=== PATIENT | female | born 1975 | race Caucasian/White ===

== ENCOUNTER → 2018-06-24 | Outpatient (CLI) | payer MEDICARE ==
[~2018-06-24] MED LIST: ALBU90OI INH; ALBU90OI6 INH; ALBUTEROL; AMOCLA875 PO; ARIP20 PO; AZIT500 PO; Abilify2 MG; BENZ100A PO; BRINTELLIX5 MG PO; BUDE10.22 INH; CLON.5 PO; CLON1 PO; CRUTCH4 USE; CYCL10 PO; Colace100 MG PO; DIAZ5 PO; DICL75ER PO; DIPH25 PO; DULO30 PO; DULO60 PO; ERGO400 PO; ESCI10 PO; ESCITALOPRAM; ESTR.05PBW TOP; ESTR2 PO; GABA300 PO; GUAI120S1 PO; HYDACE10B PO; HYDACE5 PO; IBUP800 PO; INDO50 PO; LEVO750 PO; LEVSOD50 PO; LORA10ER PO; LORAZEPAM; META800 PO; NAPR550 PO; OMEP20ER PO; OXYACE5T PO; OXYC5; PRED10 PO; PRED20 PO; PSEU120ER PO; QUETIAPINE FUM300 M1 PO; SULTRIDS PO; THERAFLU; TRAM50 PO; TYLENOL; VENL150ER PO; Ventolin5 MG/1 ML; [UNRECOGNIZED DRUG - OTHER]; [UNRECOGNIZED DRUG - OTHER] TOP
[2018-06-24 18:01] LABS: BASOPHILS ABSOLUTE AUTO 0.04 K/mm3 (0.00-0.23); BASOPHILS PERCENT AUTO 1 % (0-2); EOSINOPHILS PERCENT AUTO 0 % (0-6); Hematocrit 40.2 % (33.0-51.0); Hemoglobin 13.2 g/dL (11.5-16.0); IMMATURE GRAN ABSOLUTE AUTO 0.02 K/mm3 (0.00-0.10); IMMATURE GRAN PERCENT AUTO 0 % (0-1); LYMPHOCYTES ABSOLUTE AUTO 1.83 K/mm3 (0.84-5.20); LYMPHOCYTES PERCENT AUTO 32 % (21-46); MONOCYTES ABSOLUTE AUTO 0.34 K/mm3 (0.16-1.47); MONOCYTES PERCENT AUTO 6 % (4-13); Mean Corpuscular HGB 29.3 pg (26.0-34.0); Mean Corpuscular HGB Conc 32.8 g/dL (31.5-36.5); Mean Corpuscular Volume 89 fL (80-100); Mean Platelet Volume 9.2 fL (9.1-12.4); NEUTROPHILS ABSOLUTE AUTO 3.52 K/mm3 (1.96-9.15); NEUTROPHILS PERCENT AUTO 61 % (41-73); Platelet Count 332 K/mm3 (150-400); RDW Coefficient Variation 14.1 % (11.7-14.2); RDW Standard Deviation 45.5 fL (35.1-46.3); Red Blood Cell Count 4.51 M/mm3 (3.80-5.20); White Blood Cell Count 5.75 K/mm3 (4.00-11.30)
[2018-06-24 18:36] LABS: Alanine Aminotransfer (ALT/SGP 19 U/L (12-78); Albumin, Blood 3.7 g/dL (3.4-5.0); Albumin/Globulin Ratio 0.9 (0.8-1.8); Alk Phos 81 U/L (50-136); Anion Gap 8 mmol/L (6-16); Aspartate Aminotrans (AST/SGOT 16 U/L (12-37); Bilirubin, Total 0.2 mg/dL (0.1-1.0); Blood Urea Nitrogen 10 mg/dL (8-24); Bun/Creatinine Ratio 12.9 (12.0-20.0); CO2, Blood 25 mmol/L (21-32); Calcium, Blood 9.5 mg/dL (8.5-10.1); Chloride, Blood 103 mmol/L (98-108); Creatinine, Blood 0.77 mg/dL (0.40-1.00); Globulin, Blood 4.1 g/dL (2.2-4.0); Glomerular Filtration Rate >60 (60-); Glucose, Blood 84 mg/dL (70-99); Potassium, Blood 4.5 mmol/L (3.5-5.5); Sodium, Blood 136 mmol/L (136-145); Total Protein, Blood 7.8 g/dL (6.4-8.2)
== END | disposition home or self-care (01) ==
LOC: LAB 17:17 → LAB SHORT 17:17
PROVIDERS: Hospitalist
DX: R42 Dizziness and giddiness (principal)
CPT/HCPCS: 80053; 85025

== ENCOUNTER 2018-12-18 11:32 | Emergency (ER) | payer MEDICARE ==
[~2018-12-18] VITALS: Ht 157.5 cm; Wt 86.2 kg
[~2018-12-18 11:32] MED LIST changes: +FLUO10 PO; +VENL75ER PO
[2019-01-01] MEDS ORDERED: AIRBORNE TABLE1 EACH PO
== END 2018-12-18 13:24 | disposition home or self-care (01) ==
LOC: ER 11:32
DX: M25.522 Pain in left elbow (principal); F32.9 Major depressive disorder, single episode, unspecified; E03.9 Hypothyroidism, unspecified; Z88.8 Allergy status to other drugs, medicaments and biological substances; Z88.1 Allergy status to other antibiotic agents; Z79.899 Other long term (current) drug therapy
CPT/HCPCS: 96372; 99283-25; J1100; J1885

== ENCOUNTER 2019-01-01 16:44 | Observation (INO) | payer MEDICARE ==
[~2019-01-01] VITALS: Ht 157.5 cm; Wt 88.1 kg
[~2019-01-01 16:44] MED LIST changes: +AIRBORNE TABLE1 EACH PO
[2019-01-01 17:32] LABS: Source, Urine Clean Catch
[2019-01-01 17:37] LABS: BASOPHILS ABSOLUTE AUTO 0.03 K/mm3 (0.00-0.23); BASOPHILS PERCENT AUTO 0 % (0-2); EOSINOPHILS PERCENT AUTO 0 % (0-6); Hematocrit 39.6 % (33.0-51.0); Hemoglobin 12.8 g/dL (11.5-16.0); IMMATURE GRAN ABSOLUTE AUTO 0.04 K/mm3 (0.00-0.10); IMMATURE GRAN PERCENT AUTO 0 % (0-1); LYMPHOCYTES ABSOLUTE AUTO 1.35 K/mm3 (0.84-5.20); LYMPHOCYTES PERCENT AUTO 11 % (21-46); MONOCYTES ABSOLUTE AUTO 0.57 K/mm3 (0.16-1.47); MONOCYTES PERCENT AUTO 5 % (4-13); Mean Corpuscular HGB 29.4 pg (26.0-34.0); Mean Corpuscular HGB Conc 32.3 g/dL (31.5-36.5); Mean Corpuscular Volume 91 fL (80-100); Mean Platelet Volume 8.3 fL (9.1-12.4); NEUTROPHILS ABSOLUTE AUTO 9.94 K/mm3 (1.96-9.15); NEUTROPHILS PERCENT AUTO 83 % (41-73); Platelet Count 334 K/mm3 (150-400); RDW Coefficient Variation 13.9 % (11.7-14.2); RDW Standard Deviation 46.8 fL (35.1-46.3); Red Blood Cell Count 4.35 M/mm3 (3.80-5.20); White Blood Cell Count 11.93 K/mm3 (4.00-11.30)
[2019-01-01 17:56] LABS: Bilirubin, Urine Neg (Neg); Blood, Urine Neg (Neg); Glucose Qualitative, Urine Neg (Neg); Ketones, Urine Neg (Neg); Leukocyte Esterase, Urine Neg (Neg); Nitrite, Urine Neg (Neg); Protein, Urine Neg (Neg); Urobilinogen, Urine NORM (Normal); pH, Urine 6.5 (5.0-8.0)
[2019-01-01 18:04] LABS: Alanine Aminotransfer (ALT/SGP 20 U/L (12-78); Albumin, Blood 3.6 g/dL (3.4-5.0); Albumin/Globulin Ratio 0.8 (0.8-1.8); Alk Phos 77 U/L (50-136); Anion Gap 6 mmol/L (6-16); Aspartate Aminotrans (AST/SGOT 13 U/L (12-37); Bilirubin, Total 0.3 mg/dL (0.1-1.0); Blood Urea Nitrogen 9 mg/dL (8-24); Bun/Creatinine Ratio 11.4 (12.0-20.0); CO2, Blood 27 mmol/L (21-32); Calcium, Blood 8.6 mg/dL (8.5-10.1); Chloride, Blood 97 mmol/L (98-108); Creatinine, Blood 0.79 mg/dL (0.40-1.00); Globulin, Blood 4.6 g/dL (2.2-4.0); Glomerular Filtration Rate >60 (60-); Glucose, Blood 97 mg/dL (70-99); Potassium, Blood 3.8 mmol/L (3.5-5.5); Salicylate <1.7 mg/dL (2.8-20.0); Sodium, Blood 130 mmol/L (136-145); Total Protein, Blood 8.2 g/dL (6.4-8.2)
[2019-01-01 18:09] LABS: U Amphetamine Screen Not Detected; U Barbituate Screen Not Detected; U Benzodiazapine Screen Not Detected; U Buprenorphine Screen Not Detected; U Cannabinoids Screen DETECTED; U Cocaine Screen Not Detected; U Methadone Screen Not Detected; U Methamphetamine Screen Not Detected; U Opiates Screen Not Detected; U Oxycodone Screen Not Detected; U Phencyclidine Screen Not Detected; U Propoxyphene Screen Not Detected
[2019-01-01 18:11] LABS: Ethanol (Alcohol), Blood, Med <3 mg/dL
[2019-01-01 18:12] LABS: Acetaminophen, Random <2.0 ug/mL (10.0-30.0)
[2019-01-01] MEDS ORDERED: **INCOMPLETE MED REC (18:33)
[2019-01-01 18:40] LABS: Appearance, Urine Clear (Clear); Color, Urine Yellow (P-Yellow)
[2019-01-01] MEDS ORDERED: GABA600 PO (19:09)
[2019-01-01] MEDS ORDERED: CLON1 PO (19:09)
[2019-01-01] MEDS ORDERED: Prozac40 MG PO (19:09)
[2019-01-01] MEDS ORDERED: FOLI400 PO (19:10)
[2019-01-01] MEDS ORDERED: CHOL10002 (19:10)
[2019-01-01] MEDS ORDERED: ESTR2 PO (19:10)
[2019-01-01] MEDS ORDERED: Omeprazole20 M1 PO (19:15)
--- NOTE | 2019-01-02 02:26 | NUR ---
POISON CONTROL: CALLED 01/02 AT 0000 AND WAS GIVEN AN UPDATE. NO NEW ORDES WERE GIVEN. WILL CALL BACK IN AM.
--- NOTE | 2019-01-02 03:16 | NUR ---
PT RESTING QUIETLY, AWAKENING EASILY TO RN AT BEDSIDE. VSS. CALL LIGHT WITHING REACH.
[2019-01-02 04:44] LABS: Alanine Aminotransfer (ALT/SGP 18 U/L (12-78); Albumin, Blood 3.1 g/dL (3.4-5.0); Albumin/Globulin Ratio 0.7 (0.8-1.8); Alk Phos 71 U/L (50-136); Anion Gap 6 mmol/L (6-16); Aspartate Aminotrans (AST/SGOT 12 U/L (12-37); Bilirubin, Total 0.5 mg/dL (0.1-1.0); Blood Urea Nitrogen 8 mg/dL (8-24); Bun/Creatinine Ratio 9.8 (12.0-20.0); CO2, Blood 27 mmol/L (21-32); Calcium, Blood 8.3 mg/dL (8.5-10.1); Chloride, Blood 108 mmol/L (98-108); Creatinine, Blood 0.82 mg/dL (0.40-1.00); Globulin, Blood 4.2 g/dL (2.2-4.0); Glomerular Filtration Rate >60 (60-); Glucose, Blood 90 mg/dL (70-99); Potassium, Blood 3.9 mmol/L (3.5-5.5); Total Protein, Blood 7.3 g/dL (6.4-8.2)
[2019-01-02 05:31] LABS: Sodium, Blood 141 mmol/L (136-145)
--- NOTE | 2019-01-02 07:30 | NUR ---
ASSUMED CARE OF PATIENT; SEE ASSESSMENT CHARTING FOR DETAILS. 'SITTER' OUTSIDE OF ROOM; DOOR OPENED AND CURTAIN PULLED OPEN TO ALLOW GOOD MONITORING/SAFETY OF PATIENT. PATIENT ASLEEP; AROUSED BY VERBAL STIMULI; DENIES PAIN AT THIS TIME; STATES SHE SLEPT A LITTLE BIT LAST NIGHT. REMAINS WITH FLAT AFFECT BUT DOES ANSWER QUESTIONS WITH MORE THAN YES/OR NO. NO ACUTE MEDICAL ISSUES AT THIS TIME. IVF OF NS INFUSING AT 100ML/HR. PATIENT ASSISTED OOB TO VOID ON BSC; URINE MED. TO CODY YELLOW IN COLOR; MOD. AMOUNTS; SMEAR OF STOOL NOTED. OXYGEN AT 1-2L/MIN VIA NC; BIOX 97+%; WILL REMOVE OXYGEN.
--- NOTE | 2019-01-02 09:00 | NUR ---
DR. NICHOLSON ARRIVED; STATES SHE WILL BE AVAILABLE TIL NOON AND THEN DR. ADAIR WILL BE COVERING. WILL ACCEPT CELL PHONE CALLS TIL 13:[address] LUGO ROUNDS AND DECIDES TO D/C PATIENT.
--- NOTE | 2019-01-02 09:15 | NUR ---
OIL RECOVERY OPERATOR/CASE-MANAGEMENT HERE; TO EVAL. IF PATIENT CAN QUALIFY FOR MEDICAID ASSISTANCE WITH MED. PAYMENT.
--- NOTE | 2019-01-02 11:20 | NUR ---
DR. LUGO HERE; SPOKE PRIVATELY WITH PATIENT; SEE ORDERS. INFORMED RN THAT FAR HE IS CONCERNED PATIENT CAN BE D/C'D--NO LONGER SUICIDAL AND 2 MD HOLD DROPPED. WANTS RN TO CALL IN RX. OF SEROQUEL 200MG PO Q HS # 15--DONE.
--- NOTE | 2019-01-02 12:15 | NUR ---
D/C INSTRUCTIONS WRITTEN BY DR. NICHOLSON; SEE COMPUTER GENERATED MEDS. ,ETC.
[2019-01-02] MEDS ORDERED: QUET200 PO (13:35)
--- NOTE | 2019-01-02 14:00 | NUR ---
RN REMOVED IV FROM ARM AND SECURED WITH FOLDED 2X2'S AND SECURED WITH COBAN. D/C INSTRUCTIONS REVIEWED AND DISCUSSED AND THEN PATIENT SIGNED CONSENT OF ACKNOWLEDGEMENT. AWAITING SPOUSE TO ARRIVE TO DRIVE HER HOME.
--- NOTE | 2019-01-02 15:02 | NUR ---
DISCHARGED; ESCORTED BY VICE PRESIDENT NETWORK TO VEHICLE; SPOUSE BROUGHT CAR AROUND FOR PATIENT. PERSONAL BELONGINGS HOME WITH PATIENT; PATIENT TEARFUL ON WAY OUT; UPSET BECAUSE HER FAMILY IS MAD AT HER; PATIENT VERY SAD!. SEROQUEL TO BE TAKEN AT HS; OTHER MEDS WILL CONTINUE; SEE D/C ORDERS. TO F/U WITH CITLALY CHACON IN ABOUT A WEEK. RN CALLED IN RX FOR SEROQUEL TO [facility], PER PATIENTS' REQUEST.
== END 2019-01-02 15:06 | disposition home or self-care (01) ==
LOC: ER 16:44 → ERHOLD 16:45 → ICUW 16:45 → ERHOLD 16:45 → ICUW 23:45
PROVIDERS: Emergency Medicine; ADMIT Family Medicine
DX: T14.91XA Suicide attempt, initial encounter (principal); F32.9 Major depressive disorder, single episode, unspecified; T50.992A Poisoning by other drugs, medicaments and biological substances, intentional self-harm, initial encounter; K21.9 Gastro-esophageal reflux disease without esophagitis; R79.9 Abnormal finding of blood chemistry, unspecified; Z79.899 Other long term (current) drug therapy; Z23 Encounter for immunization
CPT/HCPCS: 36415; 80053; 81003; 81025; 84443; 85025; 90686; 93005; 93010; 96360; 96361; 96374; 99285-25; G0008; G0378; G0480; J2405; J7030

== ENCOUNTER 2019-03-10 17:04 | Inpatient (IN) | payer MEDICARE ==
[~2019-03-10] VITALS: Ht 165.1 cm; Wt 84.9 kg
[~2019-03-10 17:04] MED LIST changes: +**INCOMPLETE MED REC; +CHOL10002; +FOLI400 PO; +GABA600 PO; +Omeprazole20 M1 PO; +Prozac40 MG PO; +QUET200 PO
[2019-03-10 17:26] LABS: PCO2 Arterial 40.1 mmHg (35-45); PO2 Arterial 101 mmHg (80-100); pH Blood Arterial 7.44 (7.35-7.45)
[2019-03-10 17:41] LABS: Source, Urine Catheter
[2019-03-10 17:48] LABS: BASOPHILS ABSOLUTE AUTO 0.03 K/mm3 (0.00-0.23); BASOPHILS PERCENT AUTO 1 % (0-2); EOSINOPHILS PERCENT AUTO 0 % (0-6); Hematocrit 37.3 % (33.0-51.0); Hemoglobin 11.7 g/dL (11.5-16.0); IMMATURE GRAN ABSOLUTE AUTO 0.08 K/mm3 (0.00-0.10); IMMATURE GRAN PERCENT AUTO 2 % (0-1); LYMPHOCYTES ABSOLUTE AUTO 0.61 K/mm3 (0.84-5.20); LYMPHOCYTES PERCENT AUTO 12 % (21-46); MONOCYTES ABSOLUTE AUTO 0.26 K/mm3 (0.16-1.47); MONOCYTES PERCENT AUTO 5 % (4-13); Mean Corpuscular HGB 27.9 pg (26.0-34.0); Mean Corpuscular HGB Conc 31.4 g/dL (31.5-36.5); Mean Corpuscular Volume 89 fL (80-100); Mean Platelet Volume 8.8 fL (9.1-12.4); NEUTROPHILS ABSOLUTE AUTO 4.29 K/mm3 (1.96-9.15); NEUTROPHILS PERCENT AUTO 81 % (41-73); Platelet Count 339 K/mm3 (150-400); RDW Coefficient Variation 14.6 % (11.7-14.2); RDW Standard Deviation 47.3 fL (35.1-46.3); Red Blood Cell Count 4.19 M/mm3 (3.80-5.20); White Blood Cell Count 5.27 K/mm3 (4.00-11.30)
[2019-03-10 17:50] LABS: Appearance, Urine Clear (Clear); Bilirubin, Urine Neg (Neg); Blood, Urine Neg (Neg); Color, Urine Yellow (P-Yellow); Glucose Qualitative, Urine Neg (Neg); Ketones, Urine Neg (Neg); Leukocyte Esterase, Urine Neg (Neg); Nitrite, Urine Neg (Neg); Protein, Urine 2+ (Neg); Specific Gravity, Urine 1.025 (1.003-1.022); Urobilinogen, Urine NORM (Normal)
--- NOTE | 2019-03-10 18:04 | NUR ---
RECEIVED REPORT FROM BRAYAN ED RN, AND WILL ASSUME CARE OF PT ONCE TRANSFERRED TO ICU ROOM 7.
[2019-03-10 18:05] LABS: White Blood Cells, Urine 0-2 /hpf (0-5)
[2019-03-10 18:06] LABS: Bacteria Rare /hpf; Red Blood Cells, Urine Rare /hpf (0-2); Squamous Epithelial Cells Many /hpf (Few)
[2019-03-10 18:07] LABS: Amorphous Light (0-Heavy); Mucus Mod (0-Heavy)
[2019-03-10 18:08] LABS: U Amphetamine Screen Not Detected
[2019-03-10 18:09] LABS: U Barbituate Screen Not Detected; U Benzodiazapine Screen DETECTED; U Buprenorphine Screen Not Detected; U Cannabinoids Screen DETECTED; U Cocaine Screen DETECTED; U Methadone Screen Not Detected; U Methamphetamine Screen Not Detected; U Opiates Screen Not Detected; U Oxycodone Screen Not Detected; U Phencyclidine Screen Not Detected; U Propoxyphene Screen Not Detected
--- NOTE | 2019-03-10 18:15 | NUR ---
ADMISSION NURSING SUMMARY RECEIVED PT FROM THE ED AT 1815. INTUBATED, VENTILATOR SETTINGS A/C 14/450/5/45% FIO2, INTUBATION TUBE SIZE 7.5F AND 22 AT THE TEETH, SATS 97%, RR 13. NON-RESPONSIVE EVEN TO PAINFUL STIMULI, PROPOFOL AT 20 MCG/KG/MIN = 10.2 CC/HR. LUNG SOUNDS DIMINISHED THROUGHOUT. NSR ON MONITOR, HR 71, BP 142/87. OG TUBE IN PLACE, NPO. TEMP = 97.1. BILATERAL SOFT WRIST RESTRAINTS APPLIED TO PREVENT SELF-EXTUBATION. JOEL IN PLACE, CLEAR YELLOW URINE DRAINING. POSITIONED PT SUPINE. LEFT AC AND RIGHT UPPER ARM IV SITES.
[2019-03-10 18:16] LABS: Alanine Aminotransfer (ALT/SGP 30 U/L (12-78); Albumin, Blood 3.4 g/dL (3.4-5.0); Albumin/Globulin Ratio 0.8 (0.8-1.8); Alk Phos 81 U/L (50-136); Anion Gap 6 mmol/L (6-16); Aspartate Aminotrans (AST/SGOT 18 U/L (12-37); Bilirubin, Total 0.3 mg/dL (0.1-1.0); Blood Urea Nitrogen 12 mg/dL (8-24); Bun/Creatinine Ratio 15.5 (12.0-20.0); CO2, Blood 27 mmol/L (21-32); Calcium, Blood 9.1 mg/dL (8.5-10.1); Chloride, Blood 103 mmol/L (98-108); Creatinine, Blood 0.77 mg/dL (0.40-1.00); Ethanol (Alcohol), Blood, Med <3 mg/dL; Globulin, Blood 4.4 g/dL (2.2-4.0); Glomerular Filtration Rate >60 (60-); Glucose, Blood 107 mg/dL (70-99); Magnesium, Blood 2.3 mg/dL (1.6-2.4); Potassium, Blood 4.1 mmol/L (3.5-5.5); Sodium, Blood 136 mmol/L (136-145); Total Protein, Blood 7.8 g/dL (6.4-8.2)
[2019-03-10 18:21] LABS: Salicylate <1.7 mg/dL (2.8-20.0)
[2019-03-10 18:37] LABS: Acetaminophen, Random <2.0 ug/mL (10.0-30.0)
--- NOTE | 2019-03-10 20:39 | NUR ---
PATIENT INTUBATED AND SEDATED, PROPOFOL AT 10MCG. ETT IN PLACE WITH VENT SET AT AC14, TV450, PEEP5, FIO2 45%. PATIENT RESP UP TO 20 WITH STIMULI, NO OTHER RESPONSE SEEN AT THIS TIME. ADRIANA AT 2. DOCTOR ARNULFO IN TO SEE PATIENT, AND DOCTOR GO CALLED WITH CONSULT. PATIENTS AND SON IN TO SEE HER. UNABLE TO RECALL HER NORMAL HOME MEDICATIONS. BILAT WRIST RESTRAINTS IN PLACE TO PREVENT ACCIDENTAL EXTUBATION DUE TO UNPREDICTABLE SEDATION AND BEHAVIOR.
[2019-03-11 03:30] LABS: BASOPHILS ABSOLUTE AUTO 0.03 K/mm3 (0.00-0.23); BASOPHILS PERCENT AUTO 0 % (0-2); EOSINOPHILS PERCENT AUTO 0 % (0-6); Hematocrit 38.5 % (33.0-51.0); Hemoglobin 12.3 g/dL (11.5-16.0); IMMATURE GRAN ABSOLUTE AUTO 0.05 K/mm3 (0.00-0.10); IMMATURE GRAN PERCENT AUTO 1 % (0-1); LYMPHOCYTES ABSOLUTE AUTO 2.11 K/mm3 (0.84-5.20); LYMPHOCYTES PERCENT AUTO 31 % (21-46); MONOCYTES ABSOLUTE AUTO 0.54 K/mm3 (0.16-1.47); MONOCYTES PERCENT AUTO 8 % (4-13); Mean Corpuscular HGB 27.6 pg (26.0-34.0); Mean Corpuscular HGB Conc 31.9 g/dL (31.5-36.5); Mean Corpuscular Volume 87 fL (80-100); Mean Platelet Volume 8.6 fL (9.1-12.4); NEUTROPHILS PERCENT AUTO 60 % (41-73); Platelet Count 339 K/mm3 (150-400); RDW Coefficient Variation 14.5 % (11.7-14.2); RDW Standard Deviation 45.8 fL (35.1-46.3); Red Blood Cell Count 4.45 M/mm3 (3.80-5.20); White Blood Cell Count 6.73 K/mm3 (4.00-11.30)
[2019-03-11 03:50] LABS: Alanine Aminotransfer (ALT/SGP 30 U/L (12-78); Albumin, Blood 3.1 g/dL (3.4-5.0); Albumin/Globulin Ratio 0.8 (0.8-1.8); Alk Phos 78 U/L (50-136); Anion Gap 5 mmol/L (6-16); Aspartate Aminotrans (AST/SGOT 37 U/L (12-37); Bilirubin, Total 0.4 mg/dL (0.1-1.0); Blood Urea Nitrogen 11 mg/dL (8-24); Bun/Creatinine Ratio 12.9 (12.0-20.0); CO2, Blood 28 mmol/L (21-32); Calcium, Blood 8.6 mg/dL (8.5-10.1); Chloride, Blood 110 mmol/L (98-108); Creatinine, Blood 0.86 mg/dL (0.40-1.00); Globulin, Blood 4.1 g/dL (2.2-4.0); Glomerular Filtration Rate >60 (60-); Glucose, Blood 86 mg/dL (70-99); Magnesium, Blood 2.1 mg/dL (1.6-2.4); Potassium, Blood 4.5 mmol/L (3.5-5.5); Sodium, Blood 143 mmol/L (136-145); Total Protein, Blood 7.2 g/dL (6.4-8.2)
[2019-03-11 03:53] LABS: Acetaminophen, Random <2.0 ug/mL (10.0-30.0)
--- NOTE | 2019-03-11 06:29 | NUR ---
SUMMARY PATIENT REMAINS INTUBATED AND SEDATED, ETT IN PLACE WITH NO CHANGE TO SETTINGS. PATIENT AWAKENS EASILY TO STIMULI, PROPOFOL TITRATED UP TO 40MCG. PATIENT MAEW, BUT NOT FOLLOWING DIRECTIONS, AND NOT OPENING EYES. OG IN PLACE DRAINING BROWN BILE TO LIS. BILAT WRIST RESTRAINTS REMAIN IN PLACE.
--- NOTE | 2019-03-11 07:54 | NUR ---
ASSUMED CARE: REPORT RECEIVED FROM DYLON Ford RN. ASSUMED CARE OF THIS PT AT APPROX 0700. ON ASSESSMENT, THE PT IS SEDATED/INTUBATED & SHOWING NO S/SX PAIN OR DISCOMFORT. BILAT SOFT WRIST RESTRAINTS IN PLACE. VENT SETTINGS: AC 14, TV 450, PEEP 5 & FiO2 45%. PT TOLERATING WELL W/ O2 SATS > 92%. PROPOFOL FOR SEDATION, TITRATION IN FLOWSHEET. WILL CONTINUE TO MONITOR & UPDATE NEEDED.
--- NOTE | 2019-03-11 09:00 | NUR ---
DR NICHOLSON IN TO ASSESS PT. UPDATED WITH PT'S CURRENT STATUS.
--- NOTE | 2019-03-11 09:48 | NUR ---
SPOUSE AT BEDSIDE: PT's IS AT BEDSIDE, UPDATED HIM ON PT's CONDITION & POC. PT's STS THAT PT's MOTHER, OSMAR, IS OKAY TO RECEIVE UPDATES & INFORMATION IF SHE CALLS. VERBAL RELEASE SHEET UPDATED IN CHART.
--- NOTE | 2019-03-11 18:37 | NUR ---
SHIFT SUMMARY / DR. NICHOLSON: PT REMAINS SEDATED/INTUBATED. SHE IS WAKING MORE EASILY THIS AFTERNOON, FOLLOWING COMMANDS & REACHING FOR THE ETT PURPOSEFULLY. LS ARE CLEAR, DIM IN BASES. VENT SETTINGS UNCHANGED AC 14, TV 450, PEEP 5 & FIO2 45%. MONITOR SHOWS NSR W/ HR 70-90s. BP STABLE, SLIGHT HYPOTENSION NOTED AT TIMES. BT ARE HYPOACTIVE x4, OGT CONTINUES TO LIS. 100 ML GASTRIC OUTPUT THIS SHIFT. JOEL DRAINING DARK YELLOW-BROWN COLORED URINE. MINIMAL OUTPUT THIS SHIFT, 250 ML OUT. SKIN OVERALL CDI. CALL TO PROVIDER REGARDING MINIMAL URINE OUTPUT & DARK COLORATION. ORDERS PLACED FOR FLUID BOLUS & LABWORK. WILL CONTINUE TO MONITOR & REPORT OFF TO ONCOMING RN.
--- NOTE | 2019-03-11 19:15 | NUR ---
ASSUMING CARE OF PT AT THIS TIME. PT REPORT RECEIVED AT BEDSIDE WITH OFFGOING NURSE, YOHANA GOODMAN. PT LAYING IN BED, INTUBATED, AND SEDATED UPON ENTERING THE ROOM. VS STABLE - SEE VS FS. PT DOES NOT APPEAR TO BE IN DISTRESS AT THIS TIME. WILL REVIEW PLAN OF CARE.
--- NOTE | 2019-03-11 19:30 | NUR ---
ASSESSMENT PT CALM WITH DEC STIMULI. PT ANXIOUS, AGITATED, RESTLESS, IRREITABLE, AND PULLING AT BILAT WRIST RESTRIANTS TOWARDS ETT WITH INC STIMULI. PT RESPONDS TO PAINFUL STIMULI, OPENS EYES TO PAINFUL STIMULI/PRESSURE, FOLLOWS COMMANDS (ABLE TO FIELD SUPERVISOR WITH BILAT HANDS AND WIGGLE TOES ON COMMAND), UNABLE TO NOD HEAD Y/N TO QUESTIONS. QUICKLY FALLS BACK ASLEEP WITH DECREASED STIMULI. PROPOFOL DRIP 40 MCG/KG/MIN - WILL TITRATE TO EFFECT. CUATE SENSATION. PT HAWTHORNE. WEAK MOVEMENT NOTED. NO S/SX OF PAIN/DISCOMFORT NOTED. LUNGS CLEAR, LOWER LOBES DIMINIHSED. VENT SETTINGS: AC 14, TV 450, PEEP 5, FIO2 40%. OXY SAT >90%. RR 14. SUCTION VIA ETT: SMALL AMOUNTS OF THICK WHITE SECRETIONS. AFEBRILE. NSR. HR 80'S. BP STABLE - SEE VS FS. FAINT PULSES. COOL, PINK SKIN. TRC EDEMA TO BILAT HANDS. HYPOACTIVE BT X4 QUADRANTS. ABD MILD DIST, SOFT, NONTENDER. NO BM. OG TO LIS: BROWN LIQUID SECRETIONS. NPO. F/C: DARM CODY COLORED URINE. PIV X2. NS WITH KCL 20 MEQ AT 100 ML/HR. 500 ML NS BOLUS INFUSING.
--- NOTE | 2019-03-11 23:29 | NUR ---
WALT MCBRIDE NO GI PRO ORDERED. CALLED WALT MCBRIDE AT THIS TIME. WALT MCBRIDE ORDERED PROTONIX IV DAILY.
[2019-03-12 03:39] LABS: BASOPHILS ABSOLUTE AUTO 0.03 K/mm3 (0.00-0.23); BASOPHILS PERCENT AUTO 0 % (0-2); EOSINOPHILS PERCENT AUTO 0 % (0-6); Hemoglobin 11.5 g/dL (11.5-16.0); IMMATURE GRAN ABSOLUTE AUTO 0.07 K/mm3 (0.00-0.10); IMMATURE GRAN PERCENT AUTO 1 % (0-1); LYMPHOCYTES ABSOLUTE AUTO 1.44 K/mm3 (0.84-5.20); LYMPHOCYTES PERCENT AUTO 22 % (21-46); MONOCYTES ABSOLUTE AUTO 0.43 K/mm3 (0.16-1.47); MONOCYTES PERCENT AUTO 6 % (4-13); Mean Corpuscular HGB Conc 31.9 g/dL (31.5-36.5); Mean Corpuscular Volume 88 fL (80-100); Mean Platelet Volume 8.8 fL (9.1-12.4); NEUTROPHILS PERCENT AUTO 71 % (41-73); Platelet Count 283 K/mm3 (150-400); RDW Coefficient Variation 14.8 % (11.7-14.2); RDW Standard Deviation 47.4 fL (35.1-46.3); White Blood Cell Count 6.67 K/mm3 (4.00-11.30)
[2019-03-12 03:56] LABS: Anion Gap 6 mmol/L (6-16); Blood Urea Nitrogen 12 mg/dL (8-24); Bun/Creatinine Ratio 14.1 (12.0-20.0); CO2, Blood 24 mmol/L (21-32); Calcium, Blood 7.7 mg/dL (8.5-10.1); Chloride, Blood 115 mmol/L (98-108); Creatinine, Blood 0.85 mg/dL (0.40-1.00); Glomerular Filtration Rate >60 (60-); Glucose, Blood 83 mg/dL (70-99); Potassium, Blood 4.1 mmol/L (3.5-5.5); Sodium, Blood 145 mmol/L (136-145)
--- NOTE | 2019-03-12 05:27 | NUR ---
SHIFT ASSESSMENT NO ACUTE CHANGES NOTED T/O SHIFT. PT CALM WITH DEC STIMULI AND INCREASED SEDATION. PT ANXIOUS, AGITATED, RESTLESS, IRRITABLE, AND PULLING AT BILAT WRIST RESTRAINTS TOWARDS ETT WITH INC STIMULI AND DEC SEDATION. PT RESPONDS TO VERBAL STIMULI, OPENS EYES SPONT, FOLLOWS COMMANDS (ABLE TO PARACHUTE FOLDER WITH BILAT HANDS AND WIGGLE TOES ON COMMAND), NODDING HEAD Y/N TO QUESTIONS, TRACKS WITH EYES. PROPOFOL CURRENTLY AT 60 MCG/KG/MIN - CONT TO TITRATE TO EFFECT. SEDATION VACATION COMPLETED THIS AM. PT NODDED HEAD YES TO SENSATION INTACT ALL EXTREMETIES. PT NODDED HEAD NO TO N/T ALL EXTREMETIES. PT HAWTHORNE. WEAK MOVEMENT NOTED. NO S/SX OF PAIN/DISCOMFORT. PT DENIED PAIN/DISCOMFORT. LUNGS COARSE, LOWER LOBES DIMINISHED. OCC INSPIRATORY WHEEZING NOTED. VENT SETTINGS: AC 14, TV 450, PEEP 5, FIO2 40%. CONT TO TITRATE FIO2 TO MAINTAIN SPO2 90% AND GREATER. RR 14 TO 20'S. SUCTION VIA ETT: SMALL TO MODERATE AMOUNTS OF THICK WHITE SECRETIONS. SBT COMPLETED ON PS 5, PEEP 5, FIO2 50%. SEE DANYA RT'S NOTE REGARDING SBT. AFEBRILE. NSR. HR 70'S TO 90'S. BP STABLE - SEE VS FS. FAINT PULSES. WARM, PINK SKIN. TRC EDEMA TO BILAT HANDS. HYPOACTIVE BT X4 QUADRANTS. ABD MILD DIST, SOFT, NONTENDER. BM X1. OG TO LIS: BROWN LIQUID SECRETIONS. NPO D/T INTUBATION. F/C: DARK CODY TO BROWN COLORED URINE. PIV X2. NS WITH KCL 20 MEQ AT 100 ML/HR. WILL CONT TO MONITOR PT AND WILL PROVIDE BEDSIDE REPORT TO ONCOMING NURSE THIS AM.
--- NOTE | 2019-03-12 07:15 | NUR ---
ASSUMED CARE: REPORT RECEIVED FROM OLEG Ford RN. ASSUMED CARE OF THIS PT AT APPROX 0700. ON ASSESSMENT, THE PT REMAINS SEDATED/INTUBATED. SHE IS RESTING & APPEARS COMFORTABLE AT THIS TIME. PROPOFOL TITRATION FOR SEDATION, DOCUMENTED IN FLOWSHEET. SHE AWAKENS EASILY W/ MINIMAL STIMULUS. WHEN AWAKE, SHE IS ABLE TO FOLLOW COMMANDS, MAEW, & ANSWER YES/NO QUESTIONS W/ NODS. VENT SETTINGS: AC 14, TV 450, PEEP 5 & FIO2 60%. LS ARE COARSE T/O THIS AM W/ MORE SPUTUM BEING SUCTIONED FROM ETT WELL. O2 SATS > 92%. MONITOR SHOWS NSR W/ HR 80s. WILL CONTINUE TO MONITOR & UPDATE NEEDED.
--- NOTE | 2019-03-12 07:35 | NUR ---
[facility]: CALL FROM [facility], THEY ARE HOPING TO SEE PT TODAY IF SHE IS EXTUBATED. NOTIFIED THEM OFF POSSIBLE EXTUBATION LATER THIS MORNING ONCE DR. HERNANDEZ HAS ROUNDED. THEY WILL CALL BACK OR COME BY THIS AFTERNOON TO CHECK IN ON THE PT. WILL CONTINUE TO MONITOR & UPDATE NEEDED.
--- NOTE | 2019-03-12 11:00 | NUR ---
EXTUBATION / RISK FOR SELF HARM: SEDATION PLACED ON STANDBY, PT AWAKE & FOLLOWING COMMANDS. VENT SETTINGS CHANGED TO SPONTANEOUS W/ PS 5/5 & FIO2 40% BY DR. HERNANDEZ AT 1035. PT IS TOLERATING THIS WELL W/ ADEQUATE TIDAL VOLUMES & CONTROLLED RR. EXTUBATION TOOK PLACE AT 1055 & WAS COMPLETED BY RT ELODIA. PT NOW ON 2L NC & IS USING YANKAUR TO SELF SUCTION ORAL SECRETIONS. UPON BEING EXTUBATED, THE PT IS ASKING HOW LONG SHE HAS BEEN ADMITTED & "WHAT HAPPENED." THE CIRCUMSTANCES OF HER ADMISSION HAVE BEEN DISCUSSED & THE PT HAS COMPLETED THE SUICIDE SEVERITY SCREENING & IS POSITIVE FOR HIGH RISK SI AT THIS TIME. SHE HAS ANSWERED THE QUESTIONS & UNDERSTANDS THAT THE CAMERA WILL BE WATCHING HER & THAT EXTRA ITEMS WILL BE REMOVED FROM HER ROOM TO PROMOTE SAFETY. SHE IS AGREEABLE TO THIS & VERBALIZES UNDERSTANDING. REMOTE SLOT FLOORPERSON & NURSING VERTICAL PUNCH OPERATOR HAVE BEEN NOTIFIED OF THIS. CAMERA IS ON. WILL CONTINUE TO MONITOR & UPDATE NEEDED.
--- NOTE | 2019-03-12 12:06 | NUR ---
HIGH RISK SUICIDE: PT's ROOM HAS BEEN CLEARED OF ALL REMOVABLE HAZARDS TO SAFETY & PT IS AWARE THAT SHE IS BEING MONITORED. THIS RN CALLED [facility] TO NOTIFY THEM THAT THE PT HAS BEEN EXTUBATED SO THAT PSYCH CONSULT MAY BE COMPLETED THIS AFTERNOON. PAPER DOCUMENTATION R/T ROOM CLEARING & HOLD ARE IN CHART. WILL CONTINUE TO MONITOR & UPDATE NEEDED.
--- NOTE | 2019-03-12 19:15 | NUR ---
ASSUMING CARE OF PT AT THIS TIME. PT REPORT RECEIVED AT BEDSIDE WITH OFFGOING NURSE, YOHANA GOODMAN. PT LAYING IN BED, WATCHING TELEVISION UPON ENTERING THE ROOM. VS STABLE - SEE VS FS. PT DOES NOT APPEAR TO BE IN DISTRESS AT THIS TIME. WILL REVIEW PLAN OF CARE.
[2019-03-12] MEDS ORDERED: ALPR1 PO (19:18)
--- NOTE | 2019-03-12 19:30 | NUR ---
SHIFT SUMMARY: PT REMAINS A&O. SHE IS PLEASANT & COOPERATIVE W/ CARE. SHE IS DENYING SI THIS AFTERNOON BUT REMAINS ON HIGH RISK SUICIDE PRECAUTIONS PER DR. LUGO, UNTIL HE REASSESS HER TOMORROW. SHE IS VERY EMOTIONAL & TEARFUL T/O THE SHIFT. PT REMAINS ON 2L NC W/ O2 SATS > 92%. MONITOR SHOWS NSR-ST W/ HR 80-100s. BP STABLE. PT DENIES HAVING ANY APPETITE & EXPRESSES CONCERN W/ SWALLOWING. IT IS DISCUSSED THAT THE PT SHOULD TAKE IT EASY & ADVANCE DIET SLOWLY TOLERATED. JOEL REMOVED THIS AFTERNOON. PT HAS HAD NO VOID SINCE THAT TIME & DENIES FEELING THE NEED TO VOID AT THIS TIME. PHYS THERAPY HAS WORKED W/ PT WELL THIS AFTERNOON, SHE TOLERATED THIS WELL & IS A SBA FOR TX AROUND THE ROOM. GAIT STEADY. REPORT HAS BEEN GIVEN TO OLEG Ford RN TO ASSUME CARE.
--- NOTE | 2019-03-12 19:30 | NUR ---
ASSESSMENT PT CALM, QUIET, COOPERATIVE, RESPONDS TO VERBAL STIMULI, SPONT OPENS EYES, OCC SLOW TO RESPOND, DEPRESSED, CRYING, TEARFUL, DENIES CURRENT SI, A&O X4. . PT STATED, "I TOOK A WHOLE BUNCH OF PILLS BECAUSE I'M SAD ABOUT MY DIVORCE. MY SAID HE WANTED TO DIVORCE ME ON ". SI PRECAUTIONS. SENSATION INTACT. DENIES N/T. PT HAWTHORNE. NO WEAKNESS BUE'S. SLIGHT WEAKNESS BLE'S. PT DENIES PAIN/DISCOMFORT. NO S/SX OF PAIN/DISCOMFORT NOTED. INSPIRATORY WHEEZING, DIMINISHED LOWER LOBES. PT ON 2L NC. OXY SAT >90%. RR 18. SHALLOW BREATHING. DENIES SOB. OCC PRODUCTIVE COUGH: SMALL AMOUNTS OF THICK WHITE. AFEBRILE. ST. HR 100'S. BP STABLE - SEE VS FS. STRONG PULSES. WARM, PINK. TRC EDEMA BILAT HANDS. HYPOACTIVE BT X4 QUADRANTS. ABD MILD DIST, SOFT, NONTENDER. NO N/V. NO BM. PT TOLERATES PO FLUIDS AND ICE CHIPS. PT VOIDS WITH BATHROOM PRIVELEGES. NO UO. PIV X2. NS WITH KCL 20 MEQ AT 100 ML/HR.
--- NOTE | 2019-03-12 20:41 | NUR ---
POISON CONTROL POISON CONTROL CALLED ICU AT THIS TIME. UPDATED POISON CONTROL REGARDING PT'S STATUS, LABS, AND VS (SEE VS FS). NO NEW RECOMMENDATIONS AT THIS TIME. POISON CONTROL PLANNING TO CALL ICU AGAIN TOMORROW AM.
--- NOTE | 2019-03-12 23:30 | NUR ---
DR. MCNEILL PT C/O WHEAT AND COUGHING. CALLED DR. HERNANDEZ AT THIS TIME. DR. HERNANDEZ ORDERED TYLENOL PRN AND TESSALON PRN. WAITING FOR VERIFICATION OF MEDICATION AND TESSALON FROM PHARMACY AT THIS TIME.
--- NOTE | 2019-03-13 05:23 | NUR ---
SHIFT ASSESSMENT NO ACUTE CHANGES NOTED T/O SHIFT. PT AWAKE T/O SHIFT. PT CALM, QUIET, COOPERATIVE, RESPONDS TO VERBAL STIMULI, DEPRESSED, OCC CRYING, OCC TEARFUL, DENIED CURRENT SI, A&O X4, OCC FORGETFUL. SI PRECAUTIONS MAINTAINED. SENSATION INTACT. DENIES N/T. PT HAWTHORNE. NO WEAKNESS BUE'S. SLIGHT WEAKNESS BLE'S. PT REPOSITIONS SELF IN BED. 1P SBA WITH AMBULATION. PT C/O WHEAT DURING SHIFT THAT RESOLVED AFTER ADMINISTERING TYLENOL / UTILIZED NONPHARM METHODS. LUNGS CLEAR, LOWER LOBES DIMINISHED. OCC INSPIRATORY WHEEZING. PT ON 2L NC. OXY SAT >90% WHILE ON 2L NC. OXY SAT <90% WHILE ON RA. RR 12 TO 20'S. SHALLOW BREATHING. DENIES SOB. OCC PRODUCTIVE COUGH: SMALL AMOUNTS OF THICK WHITE SECRETIONS. AFEBRILE. ST. HR 100'S TO 110'S. BP STABLE - SEE VS FS. STRONG PULSES. WARM, PINK. TRC EDEMA BILAT HANDS. HYPOACTIVE BT X4 QUADRANTS. ABD MILD DIST, SOFT, NONTENDER. NO N/V. BM X1. PT TOLERATES PO FLUIDS AND ICE CHIPS. PT VOIDS WITH BATHROOM PRIVELEGES: CLEAR YELLOW URINE. PIV X2. NS WITH KCL 20 MEQ AT 100 ML/HR. WILL CONT TO MONITOR PT AND WILL PROVIDE BEDSIDE REPORT TO ONCOMING NURSE THIS AM.
--- NOTE | 2019-03-13 07:20 | NUR ---
START OF SHIFT NOTE: RECEIVED REPORT FROM REX MURRAY, ASSUMED CARE, PATIENT IS RESTING COMFORTABLY, ON MECHANICAL VENTILATION, VERSED AT 3 MG/HR, PATIENT IS EASILY AROUSEABLE, ABLE TO NOD AND SHAKE HEAD TO SIMPLE QUESTIONS, DENIES PAIN, AFEBRILE, VENT SETTINGS ARE 14/5/350/FiO2 30 %, PATIENT TOLERATES INTUBATION WELL, SBP'S BETWEEN 80'S AND UPPER 90'S WITH MAP GREATER THAN 65, LUNG SOUNDS ARE CLEAR BUT DIMINISHED, SR/ST, BT'S HYPOACTIVE BUT PRESENT IN ALL FOUR QUADRANTS, PEDAL PULSES PRESENT AND PALPABLE, JOEL CATHETER WITH TEMP PROBE IN PLACE, CALL LIGHT IN REACH, WILL CONTINUE TO MONITOR.
--- NOTE | 2019-03-13 08:01 | NUR ---
START OF SHIFT NOTE: RECEIVED REPORT FROM REX DEJESUS, ASSUMED CARE, PATIENT IS AWAKE, ALERT AND ORIENTED, STATED "I DID NOT SLEEP ALL NIGHT AND I AM NERVOUS BECAUSE MY MOM IS COMING FROM OUT OF TOWN TO SEE ME", PATIENT WAS ASSURED THAT SHE IS DOING FINE, DENIES PAIN, AFEBRILE, LUNG SOUNDS CLEAR, NSR, SBP'S 130'S TO 140'S, BT'S PRESENT IN ALL FOUR QUADRANTS, PATIENT C/O CONTINUES SLIGHT COUGH AND "SPITTING UP CLEAR SECRETIONS", PATIENT HAS HISTORY OF TRACHEAL STENOSIS, AND DURING THIS STAY WAS BRIEFLY INTUBATED, POSSIBLE TISSUE IRRITATION, DR. NICHOLSON IN TO SEE PATIENT, CALL LIGHT IN REACH, WILL CONTINUE TO MONITOR.
--- NOTE | 2019-03-13 08:05 | NUR ---
DR. NICHOLSON IN TO SEE PATIENT, NEW ORDERS RECEIVED.
--- NOTE | 2019-03-13 10:50 | NUR ---
DR. LUGO IN TO SEE PATIENT.
--- NOTE | 2019-03-13 13:45 | NUR ---
PATIENT CONTINUES TO HAVE DRY COUGH, TESSLON PERLS GIVEN ORDERED, PATIENT DOING MUCH BETTER, AND DECREASED COUGHING NOTED, CALL LIGHT IN REACH, WILL CONTINUE TO MONITOR.
--- NOTE | 2019-03-13 14:34 | NUR ---
PATIENT UP TO TOILET IN ROOM, STEADY GAIT REQUIRES STANDBY ASSIST ONLY, RETURNED TO BED, VISITOR AT BEDSIDE, CALL LIGHT IN REACH, WILL CONTINUE TO MONITOR.
--- NOTE | 2019-03-13 17:33 | NUR ---
SHIFT SUMMARY NOTE: PATIENT IS ALERT AND ORIENTED, LS CLEAR, 95 % ON RA, SLIGHT DECREASE TO UPPER 80'S WHEN UP TO ROOM TOILET, CONTINUES TO COUGH UP CLEAR SECRETIONS D/T HX OF TRACHEAL STENOSIS, PATIENT IS DOING WELL WITH PUREED DIET, NO PROBLEM SWALLOWING, TOOK PILLS WITH PUDDING WHOLE, ST WITH SBP'S IN 130'S 140'S, DENIES PAIN, AFEBRILE, PATIENT HAD BM DURING THIS SHIFT AND ALSO VOIDED LARGE AMOUNT OF DARK YELLOW CLEAR URINE, UP TO ROOM TOILET WITH SBA, STEADY GAIT, RESPOSITIONS SELF IN BED, WAS AT BEDSIDE ON/OFF DURING DAY, DR. LUGO IN TO SEE PATIENT AND CONTINUES THE 2 MD HOLD, PATIENT TO BE TRANSFERRED TO AN INPATIENT PSYCHIATRIC FACILITY, PATIENT IS COOPERATIVE, BUT CAN BE VERY EMOTIONAL AT TIMES, POSITIVE REINFORCEMENT USED, FOR DETAILS SEE SHIFT ASSESSMENT DOCUMENTATION AND NURSES NOTES, CALL LIGHT IN REACH, WILL CONTINUE TO MONITOR AND GIVE REPORT TO ONCOMING RECREATION PROGRAMMER.
--- NOTE | 2019-03-13 19:30 | NUR ---
ASSUMED CARE OF PT, REPORT RECEIVED. PT IS RESTING QUIETLY RECLINING IN BED. DENIES N/V, DENIES CP/PRESSURE, STATES THAT FREQUENT COUGH IS RELATED TO A PREVIOUS TRACHEAL STENOSIS SECONDARY TO SCAR TISSUE AFTER INTUBATION IN 2013 OR 2014. SHE STATES THAT THIS STENOSIS WAS LATER REPAIRED AT [facility] AND THAT SHE DOES NOT REMEMBER "HOW MUCH THEY TOOK" JUST THAT SHE HAD "A 50/50 CHANCE AT GETTING MY VOICE BACK"
--- NOTE | 2019-03-13 19:45 | NUR ---
REPORT PHONED TO BHAVYA TO RECEIVE PT TO ROOM 228
--- NOTE | 2019-03-13 19:50 | NUR ---
PT TO ROOM 228 VIA WC
--- NOTE | 2019-03-14 01:18 | NUR ---
IN HOUSE TRANSER: REPORT RECIEVED FROM GABRIELE, JUNIOR LINUX SYSTEMS ADMINISTRATOR AT 1945. PT TO UNIT AT ABOUT 1999. UPON ASSESSMENT PT IS IN NO VISABLE DISTRESS, A/O, VSS. PT DENIES ANY THOUGHTS OF SUICIDE AT THIS TIME. ENVIRONMENTALY RISK ROOM ASSESSMENT COMPLETED. THIS RN MADE AWARE THAT 1:1 RISK MONITOR CAMERA IN PT'S ROOM TURNED ON BY ELECTRONIC PREPRESS TECHNICIAN JOSH. WILL CTM PT STATUS.
--- NOTE | 2019-03-14 01:22 | NUR ---
REPORT CALLED TO REX RAMIREZ AT [facility] AT 2240 ON 03/13. PT TRANSPORT UNAVALIBLE TONIGHT, PLAN IS POSSIBLE TRANSFER OF PT TO [facility] IN THE MORNING. WILL MAKE DAY RN AWARE.
--- NOTE | 2019-03-14 05:42 | NUR ---
SUMMARY: NO CHANGE SINCE TRANSFER. SEE PREVIOUS NOTES. VSS, A/O. ASSISTED TO BATHROOM WITH YAIR WEINSTEIN OTHERWISE BATHROOM LOCKED. PT CONTINUES TO HAVE A COUGH, GIVEN TESSLON PERLES GIVEN X1. PT DENIES PAIN, NAUSEA, REPORTS HAVING A HARD TIME SLEEPING. PT MADE AWARE OF POTENTIAL TRANSFER. NO ACUTE CONCERNS AT THIS TIME
--- NOTE | 2019-03-14 10:00 | NUR ---
DISCHARGE SUMMARY PT LEFT WITH SECURED TRANSPORT TO [facility]. NO PERSONAL POSSESSIONS WENT WITH PT; DAUGHTER MIKA CALLED TO MEDICAL CSR [employer] OF IT[employer]S. IV DC'D.
== END 2019-03-14 13:47 | DRG 917 ==
LOC: ER 17:04 → ICUW 17:14 → ICUE 17:14 → SURS 03-13 20:02
PROVIDERS: Emergency Medicine; Internal Medicine Critical Care Medicine; ADMIT Family Medicine
PROC: 0BH17EZ Insertion of Endotracheal Airway into Trachea, Via Natural or Artificial Opening (ICD-10-PCS; principal; 2019-03-10)
PROC: 5A1945Z Respiratory Ventilation, 24-96 Consecutive Hours (ICD-10-PCS; 2019-03-10)
DX: T42.6X2A Poisoning by other antiepileptic and sedative-hypnotic drugs, intentional self-harm, initial encounter (principal); J96.01 Acute respiratory failure with hypoxia; F33.9 Major depressive disorder, recurrent, unspecified; K21.9 Gastro-esophageal reflux disease without esophagitis; Z91.5 Personal history of self-harm; E03.9 Hypothyroidism, unspecified; F19.10 Other psychoactive substance abuse, uncomplicated; F41.9 Anxiety disorder, unspecified
CPT/HCPCS: 31500; 31720; 36415; 36600; 51702; 71045; 80048; 80053; 81001; 82550; 82803; 82947; 83735; 84100; 84443; 84703; 85025; 93005; 93010; 94002; 94003; 94640; 97110; 97116; 97162; 97530; 99291-25; C9113; G0480; J0330; J1650; J2405; J2704; J3480; J7040